=== PATIENT | male | born 1980 | race Caucasian/White ===

== ENCOUNTER 2016-11-04 16:10 | Emergency (ER) | payer SELFPAY ==
[2016-11-04] MEDS ORDERED: DIPH,PERTUSS,TET(ADACEL) VAC/PF 0.5 ML (Tdap) IM ONE (16:18)
--- NOTE | 2016-11-04 16:18 | PDOC ---
Skin Rash/Insect/Abscess HPI - General Chief Complaint: Laceration / Wound Stated Complaint: FACIAL LACERATION Date Seen by Provider: 11/04/16 Time Seen by Provider: 16:18 Source: POSITIVE: Patient Exam Limitations: POSITIVE: No limitations - History of Present Illness Initial Comments: Charlotte is a 36 year old man who hit his left cheek with a partially open aging box hand just prior to presentation here. He bruised his left eyelid as well. He has a small cut to his cheek, bleeding is controlled. He does not remember his last tetanus shot. He did not black out or get dizzy. He denies any numbness/ tingling to the area. He has no other complaints. Pain is minimal. Have you received a tetanus shot in the past 10 years?: Unknown - Patient Home Medications Home Medications: Home Medications Cephalexin [Keflex] 500 mg PO Q6H #20 cap 11/04/16 Fluticasone/Salmeterol [ADVAIR HFA] 2 inh IH BID PRN 11/04/16 Omeprazole Magnesium [Prilosec Otc] 20 mg PO DAILY PRN 11/04/16 - Patient Allergies Allergies/Adverse Reactions: Allergies Allergy/AdvReac Type Severity Reaction Status Date / Time No Known Allergies Allergy Verified 11/04/16 16:20 Past Medical History Past Medical History Reviewed: Reviewed - No Changes ROS - Limitations ROS Limitations: No Limitations Constitution: REPORTS: Denies Symptoms Cardiovascular: REPORTS: Denies Cardiac Symptoms Respiratory: REPORTS: Denies Resp Symptoms Neurological: REPORTS: Denies Neuro Symptoms Gastrointestinal: REPORTS: Denies GI Symptoms Musculoskeletal: REPORTS: Denies MS Symptoms Eyes: REPORTS: Other (swelling to lower left eyelid) Skin Rash/Insect/Abscess Exam - General Appearance General Appearance: REPORTS: Alert, Cooperative, No Acute Distress - Skin Skin: REPORTS: Other (1 cm laceration in an "L" shape overlying to left cheek, 2 cm inferior to the eyelid. minimal dehiscence. no active bleeding) - Extremities Extremity: Normal ROM: (All Extremities), Normal Inspection: (All Extremities) - HEENT HEENT: POSITIVE: PERRL, EOMI, Other (L lower eyelid edematous and ecchymotic. L orbit itself intact with no abnormalities) - Respiratory Respiratory: REPORTS: No Respiratory Distress - Cardiovascular Cardiovascular: REPORTS: Regular Rate and Rhythm Peripheral Pulses: Radial (R): 2+, Radial (L): 2+ - Abdomen Abdomen: Denies Tenderness: (All Quadrants), No Distention: (All Quadrants) - Neurological / Psychological Neurological: REPORTS: Affect Apporpriate, Oriented X3 Procedures - Laceration/Wound Repair Did patient have a laceration repair: Yes Site of Laceration/Wound: L cheek Wound Length (cm): 1 Wound's Depth, Shape: Superficial, Into muscle Time of Suture Placement:: 16:40 Distal CMS: Yes Local Anesthesia Used - Indicate Amt Used in Comment: Lidocaine 1% with Epinephrine: Yes (2 mL) Irrigated w/ Saline (mL): 60 Wound Explored: Clean Wound Debrided: Minimal Wound Repaired With: Sutures single layer Suture Size/Type: 5:0, Prolene Number of Sutures: 3 Layer Closure?: No Drain Placement: No Sterile Dressing Applied?: No Splint Applied?: No Sling Applied?: No Skin Rash/Abscess Progress - Patient's Progress MDM / ED Course: Mr Canada is a 36 year old man coming in today with an acute superficial laceration to his left cheek, and a bruise to his left eyelid. Plan will be to suture laceration and have him get the sutures removed in 8-10 days. Patient Care Time - Estimated PCT Patient Care Time (In Minutes): 10 Vital Signs - VS Reviewed Vital Signs Reviewed: Yes Discharge Clinical Impression: Laceration - injury Discharge Disposition: Discharged to Home Condition: Fair Prescriptions / Orders: Cephalexin [Keflex] 500 mg PO Q6H #20 cap Patient Instructions Given at Discharge: Laceration (ED) Additional Instructions: The stitches need to be removed in 8-10 days. Take the keflex to keep the cut from getting infected.
[2016-11-04] MEDS ORDERED: LIDOCAINE 2%/ EPI 1:200,000 - 20 ML VIAL SUBCUT ONE (16:19)
[2016-11-04 17:09] VITALS: RESP 14; TEMP 98.2
== END 2016-11-04 16:58 | disposition home or self-care (01) ==
LOC: ER 16:10
DX: S01.412A Laceration without foreign body of left cheek and temporomandibular area, initial encounter (principal); S00.12XA Contusion of left eyelid and periocular area, initial encounter; W26.0XXA Contact with knife, initial encounter
CPT/HCPCS: 12011; 90471; 99282